=== PATIENT | female | born 1995 | race African-American/Black ===

== ENCOUNTER 2021-05-02 21:49 | Emergency (ER) | payer OTHER ==
[~2021-05-02] VITALS: Ht 165.1 cm; Wt 119.5 kg
[2021-05-02 22:08] LABS: BILIRUBIN,URINE NEGATIVE (NEG); CLARITY,URINE CLOUDY; COLOR,URINE YELLOW; NITRITE,URINE NEGATIVE (NEG); PH,URINE 5.5 (<5.0-8.0); PROTEIN,URINE NEGATIVE (NEG-TRACE); UROBILINOGEN,URINE 0.2 mg/dL (0.2 mg/dL)
--- NOTE | 2021-05-02 22:09 | PHYS DOC ---
Past Medical History Past Medical History: No Pertinent History Past Surgical History: No Surgical History Smoking Status: Never Smoker Alcohol Use: None Drug Use: None General Adult EDM: Chief Complaint: VAGINAL BLEEDING HPI: HPI: 26-year-old G1, P0 approximately 9 weeks female by dates with last menstrual period 02/27/2021 presents to the emergency department complaining of vaginal bleeding that started approximately 45 minutes ago. She reports that she had a gush of red blood per vagina and has been spotting mildly since. She denies any loss of fluid. She admits to some mild lower quadrant abdominal pain that feels like cramping. This did not happen before in her . She has not had imaging or follow-up for this as of yet but she does have an [facility] appointment scheduled. No reports of medical history of cause of the so far. The patient denies nausea, vomiting, fever, chills, chest p ain, shortness of breath, urinary symptoms, cough, recent trauma, or any other complaints. Review of Systems: Review of Systems: Constitutional: Negative except what was mentioned in HPI. Eyes: Negative except what was mentioned in HPI. HENT: Negative except what was mentioned in HPI. Respiratory: Negative except what was mentioned in HPI. Cardiovascular: Negative except what was mentioned in HPI. GI: Negative except what was mentioned in HPI. : Negative except what was mentioned in HPI. Musculoskeletal: Negative except what was mentioned in HPI. Integument: Negative except what was mentioned in HPI. Neurologic: Negative except what was mentioned in HPI. Heart Score: C/O Chest Pain: No Family History: Family History: non contributory Allergies: Allergies: Allergies Coded Allergies Type Severity Reaction Last Updated Verified No Known Drug Allergies 02/03/15 No Physical Exam: PE: Constitutional: Appears anxious, no acute distress. HENT: Atraumatic, bilateral external ears normal, nose normal. Eyes: PERRLA, EOMI, conjunctiva normal, no discharge. Neck: Normal range of motion, supple, no stridor. Cardiovascular: Heart rate regular rhythm. 2+ radial pulses Lungs & Thorax: No respiratory distress, symmetrical expansion. Bilateral breath sounds clear to auscultation Abdomen: Soft, no tenderness Genitourinary: External: Normal external genitalia, no lesions. Speculum: Dried blood is present in the vaginal vault, no active bleeding is present from the cervical os, cervix within normal limits, no lacerations Bimanual: Os closed. No cervical motion tenderness. No adnexal tenderness or masses palpated. 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 Extremities: No tenderness, no cyanosis, ROM intact, no edema. Neurologic: Alert and oriented X 3, normal motor function, normal sensory function, no focal deficits noted. Non ataxic gait. GCS 15. Psychologic: Affect normal, judgment normal, mood normal. Current Patient Data: Labs: Laboratory Tests Test 05/02/21 22:02 POC Urine HCG, Qualitative Hcg positive (Negative) Vital Signs: Vital Signs Date Time Temp Pulse Resp B/P (MAP) Pulse Ox O2 Delivery O2 Flow Rate FiO2 05/02/21 22:00 99.7 100 16 159/78 (105) 98 Room Air 99.7 Radiology/Procedures: Radiology/Procedures: EXAM: Complete transvaginal pelvic ultrasound INDICATION: female with vaginal bleeding.. COMPARISON: No priors TECHNIQUE: Transvaginal pelvic sonography with grayscale and M-mode Doppler duplex Doppler sonography was performed. FINDINGS: Anteverted appearing uterus measures 9.3 x 6.4 x 6.9 cm. Cervix demonstrates endocervical fluid with distention of the canal measuring 0.4 cm in diameter, in light of this there is no funneling of the cervical internal os evident and no shortening of the cervix evident on these images, cervical length 3.0 cm. Single viable intrauterine with a single fetus. heart rate 169 bpm. crown-rump length 2.15 cm estimating sonographic gestational age of 8 weeks 6 days and date of delivery December 07, 2019. Subjectively normal volume of amniotic fluid. No subchorionic hemorrhage. Yolk sac diameter 5 mm which is normal. It is too early for evaluation of the placenta. It is too early for anatomic evaluation. Right ovary measures 3.3 x 2.7 x 1.9 cm. Left ovary measures 2.6 x 2.0 x 1.8 cm. There is intact bilateral right blood flow. While not measured by the video intern the right ovary appears to contain a thick walled hypoechoic 1.2 cm structure with mild peripheral hypervascularity typical corpus luteum. No pelvic fluid. No adnexal masses. IMPRESSION: Single viable intrauterine with an estimated sonographic gestational age of 8 weeks 6 days. There is mild fluid distention of the endocervical canal. However there is no funneling of the cervical internal os and no shortening of the cervical length which measures 3.0 cm in length. No puri bchorionic hemorrhage evident. See above. Electronically signed by: Patrick Wills MD (05/02/2021 11:30 PM) Course & Med Decision Making: Course & Med Decision Making Ultrasound as above, pelvic exam shows a closed os, patient was diagnosed with threatened , we will treat her asymptomatic bacteriuria. Patient has an appointment scheduled with [facility] for follow-up of her . Patient had no active bleeding in the ED upon reassessment and she says it has stopped. Patient was discharged in stable condition Departure Departure Impression: Primary Impression: Threatened Additional Impression: Asymptomatic bacteriuria antepartum Disposition: HOME / SELF CARE / HOMELESS Condition: STABLE Referrals: Marcy MORFIN MD (PCP) Patient Instructions: Asymptomatic Bacteriuria, Female, Threatened Miscarriage, [id number] Additional Instructions: You were seen for vaginal bleeding during . You did not have a miscarriage but sometimes bleeding like this can be a sign of miscarriage in the future. You should be on pelvic rest (no sexual intercourse or insertion into the vagina) until you see the [facility] doctors in clinic. You should return to the ED if you develop worsening pain, fever, heavy vaginal bleeding, or any other new or concerning symptoms. You have been given a prescription for Macrobid. This medicine is an antibiotic for asymptomatic bacteriuria. Please take as prescribed for the full course of the prescription. Do not stop taking the medicine early if you feel better, as this could risk building antibiotic resistance and may put you at risk for a more harmful infection later. The most common side effect of antibiotics include nausea, vomiting, diarrhea and rash. Please come to be evaluated if you develop any symptoms that are concerning to you. One major adverse effect of antibiotics is the development of a diarrheal illness called c. diff colitis, if you develop an excessive amount of diarrhea or are concerned about this please return to the ER or consult a physician. Scripts Nitrofurantoin Monohyd/M-Cryst (MACROBID 100 MG CAPSULE) 100 Mg Capsule 1 CAP PO BID for 5 Days, #10 CAP 0 Refills Prov: RODRIGUE MUNROE DO 05/03/21 RODRIGUE MUNROE DO May 02, 2021 22:09
[2021-05-02 22:17] LABS: BACTERIA,URINE FEW /HPF (0-FEW)
[2021-05-02 22:28] LABS: BASO % 0 % (0-3); EOS % 0 % (0-3); HEMATOCRIT 36.2 % (36.0-47.0); LYMPH # 1.1 x10^3/uL (1.0-4.8); LYMPH % 10 % (24-48); MEAN CORPUSCULAR HEMOGLOBIN 26 pg (25-35); MEAN CORPUSCULAR HGB CONC 33 g/dL (31-37); MEAN CORPUSCULAR VOLUME 77 fL (79-100); MONO # 0.5 x10^3/uL (0.0-1.1); MONO % 4 % (0-9); NEUT # 9.6 x10^3/uL (1.8-7.7); NEUT % 86 % (31-73); PLATELET COUNT 283 x10^3/uL (140-400); RED BLOOD COUNT 4.72 x10^6/uL (3.50-5.40); RED CELL DISTRIBUTION WIDTH 14.9 % (11.5-14.5); WHITE BLOOD COUNT 11.2 x10^3/uL (4.0-11.0)
[2021-05-02 23:00] LABS: CALCIUM 9.3 mg/dL (8.5-10.1); GFR 80.5; POTASSIUM 3.7 mmol/L (3.5-5.1)
--- NOTE | 2021-05-02 23:32 | RAD ---
EXAM: Complete transvaginal pelvic ultrasound INDICATION: female with vaginal bleeding.. COMPARISON: No priors TECHNIQUE: Transvaginal pelvic sonography with grayscale and M-mode Doppler duplex Doppler sonography was performed. FINDINGS: Anteverted appearing uterus measures 9.3 x 6.4 x 6.9 cm. Cervix demonstrates endocervical fluid with distention of the canal measuring 0.4 cm in diameter, in light of this there is no funneling of the c ervical internal os evident and no shortening of the cervix evident on these images, cervical length 3.0 cm. Single viable intrauterine with a single fetus. heart rate 169 bpm. crown-rump length 2.15 cm estimating sonographic gestational age of 8 weeks 6 days and date of delivery December 07, 2019. Subjectively normal volume of amniotic fluid. No subchorionic hemorrhage. Yolk sac diameter 5 mm whic h is normal. It is too early for evaluation of the placenta. It is too early for anatomic evalu ation. Right ovary measures 3.3 x 2.7 x 1.9 cm. Left ovary measures 2.6 x 2.0 x 1.8 cm. There is intact bila teral right blood flow. While not measured by the lofter the right ovary appears to contain a th ick walled hypoechoic 1.2 cm structure with mild peripheral hypervascularity typical corpus luteum. N o pelvic fluid. No adnexal masses. IMPRESSION: Single viable intrauterine with an estimated sonographic gestational age of 8 w eeks 6 days. There is mild fluid distention of the endocervical canal. However there is no funneling of the cervical internal os and no shortening of the cervical length which measures 3.0 cm in length. No subchorionic hemorrhage evident. See above. Electronically signed by: Patrick Wills MD (05/02/2021 11:30 PM) [facility] [place]
[2021-05-03 00:28] VITALS: BP 163/101
[2021-05-03] MEDS ORDERED: NITR100C62 PO (00:31)
[2021-05-05 18:13] LABS: GC PROBE Negative (Negative)
== END 2021-05-03 01:10 | disposition home or self-care (01) ==
LOC: ER 21:49
DX: O20.0 Threatened abortion (principal); R82.71 Bacteriuria; Z3A.09 9 weeks gestation of pregnancy
CPT/HCPCS: 36415; 76830; 76856; 80048; 81001; 81025; 84702; 85025; 86850; 86900; 86901; 87086; 87491; 87591; 99284; Q0111